=== PATIENT | male | born 1975 | race Caucasian/White ===

== ENCOUNTER 2017-03-10 15:20 | Inpatient (IN) | payer BC ==
[~2017-03-10] VITALS: Ht 195.6 cm; Wt 148.2 kg
[2017-03-18] MEDS ORDERED: ESCI20TA PO (13:40)
[2017-03-18] MEDS ORDERED: HYDR12.57 PO (13:40)
[2017-03-18] MEDS ORDERED: LOPE2CAP PO (13:40)
[2017-03-18] MEDS ORDERED: AZIT250T3 PO (13:40)
[2017-03-18] MEDS ORDERED: HYDR-3583 PO (13:40)
[2017-03-18] MEDS ORDERED: ATEN100T PO (13:40)
[2017-03-18] MEDS ORDERED: ZOLP10TA3 PO (13:40)
[2017-03-18] MEDS ORDERED: LORA1TAB12 PO (13:40)
[2017-03-18] MEDS ORDERED: DULO1CAP3 PO (13:40)
[2017-03-18] MEDS ORDERED: LYRI200C PO (13:40)
[2017-03-18] MEDS ORDERED: ALLO300T2 PO (13:40)
[2017-03-18] MEDS ORDERED: KETO2CRE TOPICAL (13:40)
[2017-03-19] VITALS (8 sets, daily range): BP systolic 133–177; BP diastolic 68–81; PULSE 67–98; RESP 14–20; TEMP 97–98.5; O2SAT 92–98
[2017-03-19] MEDS ORDERED: ceFAZolin 2 GM PREMIX 50 ML IV SCH (06:15)
[2017-03-19] MEDS ORDERED: LACTATED RINGER'S 1000 ML IV PRN (06:15)
[2017-03-19] MEDS ORDERED: CHLORHEXIDINE GLUCONATE 2 % 1 PACK (2 CLOTHS) TOPICAL PRN (06:15)
[2017-03-19] MEDS ORDERED: SODIUM CHLORID 0.9% 500 ML IV PRN (06:15)
[2017-03-19] MEDS ORDERED: VANCOMYCIN 1000 MG/NS 250 ML (for <70 kg) IV SCH ×2 (06:15)
[2017-03-19] MEDS ORDERED: POVIDONE IODINE 5% (ANTISEPSIS KIT) 4 APPLICATIONS EACH NARE PRN (06:15)
[2017-03-19] MEDS ORDERED: METOPROLOL TARTRATE 25 MG TAB PO PRN (06:15)
[2017-03-19] MEDS ORDERED: INSULIN HUMAN REGULAR 1,000 UNITS/10 ML VIAL SQ PRN (06:15)
[2017-03-19] MEDS ORDERED: CHLORHEXIDINE GLUCONATE 4% SOLN 120 ML BTL TOPICAL SCH (06:15)
[2017-03-19] MEDS ORDERED: BUPIVACAINE/EPINEPHRINE 0.5% PF 30 ML VIAL ONE (07:00)
[2017-03-19] MEDS ORDERED: GENTAMICIN SULFATE 80 MG/2 ML VIAL ONE (07:00)
[2017-03-19] MEDS ORDERED: MIDAZOLAM HCL 2 MG/2 ML VIAL ONE (07:10)
[2017-03-19] MEDS ORDERED: HYDROmorphone HCL PF 2 MG/ML VIAL ONE (07:10)
[2017-03-19] MEDS ORDERED: fentaNYL CITRATE 250 MCG/5 ML AMP ONE ×3 (07:10→12:15)
[2017-03-19] MEDS ORDERED: ACETAMINOPHEN 1000 MG/100 ML VIAL IV ONE (07:11)
[2017-03-19] MEDS ORDERED: PROPOFOL 200 MG/20 ML AMP IV ONE (07:26)
[2017-03-19] MEDS ORDERED: ePHEDrine/NS 25 MG/5 ML SYR IV ONE (07:26)
[2017-03-19] MEDS ORDERED: FLUMAZENIL 1 MG/10 ML VIAL IV ONE (07:29)
[2017-03-19] MEDS ORDERED: PHENYLEPH/NS 1000 MCG/10 ML SYR IV ONE (07:29)
[2017-03-19] MEDS ORDERED: ONDANSETRON HCL 4 MG/2 ML VIAL IV PUSH ONE (07:29)
[2017-03-19] MEDS ORDERED: LACTATED RINGER'S 1000 ML INJ 2,000 ML IV ONE (07:30)
[2017-03-19] MEDS ORDERED: ONDANSETRON HCL 4 MG/2 ML VIAL IV PRN (11:21)
[2017-03-19] MEDS ORDERED: NALOXONE HCL 0.4 MG/ML AMP IV PRN (11:21)
[2017-03-19] MEDS ORDERED: ALUMINUM/MAGNESIUM/SIMETH 30 ML CUP PO PRN (11:21)
--- NOTE | 2017-03-19 11:26 | HHI.PR ---
Immediate Post Op Note Procedure Date: Mar 19, 2017 Pre Op Diagnosis: C5-6,C6-7 HNP,ODC;DDD,OA Post Op Diagnosis: Same Surgeon: Pelon Oquendo MD Pressurised Container Filler(s): Jada Lara PA-C Procedure: C5-6,C6-7 AIF,ACC,ASI Complications: None Specimen(s) removed: None Estimated blood loss: 150 cc Anesthesia: General Drains: None Patient Condition: Good Implant/Devices: SEE IMPLANT LOG (if applicable) Date/Time of Procedure: SEE SURGICAL CARE RECORD Pelon Oquendo MD Mar 19, 2017 11:26
[2017-03-19] MEDS ORDERED: ACETAMINOPHEN/HYDROcodone 325 MG/10 MG TAB PO PRN (11:30)
[2017-03-19] MEDS ORDERED: MORPHINE SULFATE 8 MG/ML INJ IV PUSH PRN (11:30)
[2017-03-19] MEDS ORDERED: ZOLPIDEM TARTRATE 10 MG TAB PO PRN (11:30)
[2017-03-19] MEDS: SODIUM CHLORIDE 0.9% FLUSH 5 ML FLUSH IVF SCH ×2 (11:30→20:27)
[2017-03-19] MEDS ORDERED: SODIUM CHLORIDE 0.9% FLUSH 5 ML FLUSH IVF PRN (11:30)
[2017-03-19] MEDS ORDERED: LOPERAMIDE HCL 2 MG CAP PO PRN (11:30)
[2017-03-19] MEDS ORDERED: Post-op Orders (for Pharmacy) MISC XX ONE (11:34)
--- NOTE | 2017-03-19 11:43 | PD.OP ---
cc: Pelon Oquendo MD; Chris Oquendo MD Operative Report Date of Surgery: Mar 19, 2017 Preoperative Diagnosis: Osteophyte disc complex, herniated nucleus pulposus C5-C6, right. Herniated nucleus pulposus C6-C7 central, left. Bilateral cervical radiculopathy Postoperative Diagnosis: Same Procedure: Anterior cervical discectomy decompression and bilateral foraminotomies, C5 6. Anterior cervical discectomy decompression with bilateral foraminotomies C6 7. Left anterior iliac crest bone graft Anesthesia: Gen. Surgeon: Chris Oquendo Fine Grade Bulldozer Operator(s): LEILANI Nicole Operation and Findings: EBL: 50 cc INDICATIONS: This patient is a 42-year-old white male with significant neck and radiating bilateral arm pain. There is evidence of weakness of the arms and studies show evidence of an osteophyte disc complex to the right at C5-C6 and a herniated disc centrally into the left at C6 7. He presents for surgical treatment. NOTE: Maryse Nicole PA-C was present for the entire surgical procedure as my assistant branch manager. In my medical opinion her skill and care was necessary for proper management of this patient PROCEDURE: The patient was brought to the operating room and anesthetized in the supine position. This patient was positioned supine on the radiolucent table. All pressure points were protected in the anterior cervical spine and iliac crest was scrubbed with alcohol followed by Hibiclens followed by ChloraPrep. A timeout was done and antibiotics were given within 1 hour time window. Lateral radiographic images were used identifying the proper level. A right anterior incision was made in line with skin creases. The platysma was opened in line with the incision. Deep dissection continued in the interval between the carotid sheath and the esophagus. The longus-coli muscles were lifted on both sides and retractors were positioned allowing good exposure. Lateral radiographic images were used to identify the proper level. Armstrong style interosseous pins were placed at C5 and C6 allowing exposure to that level. The microscope was rolled into the field. A total discectomy was accomplished and posterior osteophytes were removed. The posterior longitudinal ligament and annulus was taken down. Bilateral foraminotomies were accomplished. The endplates were squared up anticipating later bone grafting. A blunt probe could be placed out each foramen without evidence of nerve root compromise. The C5 pin was placed down to C7. An anterior exposure was accomplished. We performed a total discectomy with excision of the posterior annulus and posterior longitudinal ligament. Bilateral foraminotomies were accomplished. Osteophytes were removed. The endplates were squared up anticipating later bone grafting. A blunt probe could be placed out each foramen without evidence of nerve root compromise. The left iliac crest was approached. A small stab incision was made allowing percutaneous access to the anterior iliac crest. Multiple cores of cancellous bone were harvested and taken to the back table to be used for later bone grafting. The wound was irrigated anesthetized and closed with 4-0 Vicryl followed by Dermabond. The case was turned over to Dr. Pelon Oquendo for fusion and instrumentation per his dictation. FINDINGS: There was evidence of a osteophyte disc complex with a soft disc herniation to the right at C5 6 and evidence of an extruded soft disc herniation to the left at C6-C7. The final decompression was very satisfactory. There was no complication that was appreciated. NOTE: This surgery was performed in 2 parts. The first part was the neurosurgical decompression performed under the variable power stereo microscope by the undersigned in addition to the bone graft. The second portion of the surgery will be performed by the orthopedic spine component by co -surgeon, Dr. Pelon Oquendo for the anterior fusion with interbody cage and anterior plate. The skill of 2 surgeons was necessary to perform distinct separate procedural services as dictated above and dictated in the following operative note by Dr. Pelon Oquendo. Chris Oquendo MD Mar 19, 2017 11:43
[2017-03-19] MEDS ORDERED: *morphine SULFATE 8 MG/ML PERIprocedure ONLY ONE (11:54)
[2017-03-19] MEDS ORDERED: *HYDROmorphone PF 1 MG VIAL PERIprocedural Use ONLY ONE ×4 (12:05→13:00)
[2017-03-19] MEDS: LACTATED RINGER'S 1000 ML INJ 1,000 ML IV SCH ×2 (12:20→23:51)
[2017-03-19] MEDS ORDERED: *RESP: ALBUTEROL 2.5 MG/3 ML NEB (PRN) PERIprocedural Use ONLY NEB ONE (12:24)
[2017-03-19] MEDS ORDERED: DO NOT ADM ANY ANTICOAGULANT DRUGS PRN (12:30)
[2017-03-19] MEDS ORDERED: ZOLPIDEM TARTRATE 5 MG TAB PO PRN (14:00)
--- NOTE | 2017-03-19 14:02 | PD.CONS ---
[facility] By [facility] Physician Kashmir Weir DO Diagnoses: History of Present Illness Mr. Martinez is a 42-year-old male. He was admitted for a C-spine fusion which is obtaining secondary to weakness and numbness of his right arm (sometimes left). He has a long history of chronic back pain in disease of the spine. Baseline medical conditions or sleep apnea, osteoarthritis, hypertension. He uses CPAP while he sleeps at night. I am seeing him status post surgery. He is alert and oriented 3 without any lethargy and he has no reported nausea or vomiting. No coronary artery disease. No lung disease. No diabetes. No other complaints. Review of Systems Constitutional: DENIES: Fatigue, Fever, Chills Eyes: DENIES: Blurred vision, Diplopia Ears, nose, mouth, throat: DENIES: Hearing loss, Vertigo Respiratory: DENIES: Cough, Wheezing, Shortness of breath Cardiovascular: DENIES: Chest pain, Palpitations, Syncope Gastrointestinal: DENIES: Abdominal pain, Black stools, Bloody stools Musculoskeletal: COMPLAINS OF: Joint pain, Neck pain Integumentary: DENIES: Abnormal pigmentation Hematologic/lymphatic: DENIES: Bruising Immunologic/allergic: DENIES: Eczema Neurologic: DENIES: Abnormal gait Psychiatric: DENIES: Anxiety, Confusion, Mood changes Past Family Social History Allergies: Coded Allergies: No Known Allergies (Unverified , 03/18/17) Past Medical History Osteoarthritis Chronic back pain Sleep apnea Hypertension Gen. anxiety disorder Past Surgical History Patient reports bone and spine surgeries, nonspecific Reported Medications Reported Meds & Active Scripts Active Reported Zolpidem (Zolpidem Tartrate) 10 Mg Tab 10 Mg PO HS PRN Lyrica (Pregabalin) 200 Mg Cap 200 Mg PO BID Lorazepam 1 Mg Tab 1 Mg PO BID Loperamide (Loperamide HCl) 2 Mg Cap 2 Mg PO DIRECTED PRN One capsule after each loose stool. Not to exceed 8 capsules per day. Hydrocodone-Acetaminophen 10-325 mg Tab 1 Tab PO TID Hydrochlorothiazide 12.5 Mg Cap 12.5 Mg PO DAILY Escitalopram (Escitalopram Oxalate) 20 Mg Tab 20 Mg PO DAILY Duloxetine DR (Duloxetine HCl) 60 Mg Capdr 60 Mg PO DAILY Atenolol 100 Mg Tab 100 Mg PO DAILY Allopurinol 300 Mg Tab 300 Mg PO DAILY Active Ordered Medications Administered Medications Medications (Trade) Dose Ordered Sig/Giorgio Route PRN Reason Start Time Stop Time Status Last Admin Dose Admin Lactated Ringer's (Lr 1000 ml Inj) 1,000 ml @ 80 mls/hr [id number] IV 03/19/17 11:21 03/19/17 12:20 Family History His mother and father healthy, reportedly Social History No smoking No alcohol abuse No drug abuse Physical Exam Vital Signs Vital Signs Date Time Temp Pulse Resp B/P Pulse Ox O2 Delivery O2 Flow Rate FiO2 03/19/17 13:15 98.2 81 12 155/80 95 Nasal Cannula 3 03/19/17 13:00 87 12 161/75 94 Nasal Cannula 3 03/19/17 12:45 87 14 158/74 96 Nasal Cannula 3 03/19/17 12:30 81 16 147/74 98 Aerosol Mask 03/19/17 12:15 88 12 148/73 92 Nasal Cannula 3 03/19/17 12:00 92 14 150/74 93 Nasal Cannula 3 03/19/17 11:45 89 15 149/78 98 Simple Mask 10 03/19/17 11:40 99.1 92 16 141/71 96 Simple Mask 15 03/19/17 06:25 98.2 67 18 146/81 98 Physical Exam GENERAL: NAD, A&Ox3 HEAD: Normocephalic. NECK: Supple, trachea midline. No lymphadenopathy. EYES: No scleral icterus. No injection or drainage. CARDIOVASCULAR: Regular rate and rhythm without murmurs, gallops, or rubs. RESPIRATORY: Breath sounds equal bilaterally. No accessory muscle use. GASTROINTESTINAL: Abdomen soft, non-tender, nondistended. MUSCULOSKELETAL: No cyanosis, or edema. Patient is in a cervical collar postop SKIN: Warm and dry. NEURO: No focal neurological deficitis. Assessment and Plan Problem List: (1) Osteoarthritis ICD Code: M19.90 Status: Acute (2) Hypertension ICD Code: I10 Status: Acute (3) Sleep apnea ICD Code: G47.30 Status: Acute (4) Chronic back pain ICD Code: M54.9 Status: Acute (5) S/P cervical spinal fusion ICD Code: Z98.1 Status: Acute Assessment and Plan Assessment and plan 42-year-old male status post cervical spine fusion Postop cervical spine fusion osteoarthritis Maintain c-collar Neurosurgery following When necessary pain treatments Decrease dose of zolpidem secondary to need for increase in narcotics Change lorazepam from when necessary to scheduled Sleep apnea CPAP machine at night Continue at-home settings Hypertension follow blood pressures Continue baseline treatments Slightly elevated presently that this would be expected secondary to discomfort , treat pain DVT prophylaxis SCDs Kin Gomez MD Mar 19, 2017 14:02
--- NOTE | 2017-03-19 16:00 | RADRPT ---
EXAM DATE/TIME: 03/19/2017 08:55 [facility] COMPARISON: No previous studies available for comparison. INDICATIONS : Herniated disk, hardware placement. MEDICAL HISTORY : None. SURGICAL HISTORY : None. ENCOUNTER: Initial ACUITY: 1 day PAIN SCORE: 1/10 LOCATION: Cervical spine. FINDINGS: Anterior cervical fusion hardware is noted from C5 through C7 and appears to be adequate in position. CONCLUSION: Status post anterior cervical fusion from C5 through C7. Dalton Hobbs MD on March 19, 2017 at 15:54 Board Certified Radiologist. This report was verified electronically.
[2017-03-19] MEDS: LORazepam 1 MG TAB PO PRN (18:22)
[2017-03-19] MEDS: DULoxetine HCl DR 60 MG CAP PO SCH (18:22)
[2017-03-19] MEDS: ACETAMINOPHEN/HYDROcodone 325 MG/10 MG TAB PO PRN (18:23)
[2017-03-19] MEDS: ESCITALOPRAM OXALATE 20 MG TAB PO SCH (18:23)
[2017-03-19] MEDS: PREGABALIN 100 MG CAP PO SCH (20:27)
[2017-03-19] MEDS ORDERED: PREGABALIN 100 MG CAP PO SCH (21:00)
[2017-03-19] MEDS ORDERED: LORazepam 1 MG TAB PO PRN (21:00)
[2017-03-19] MEDS ORDERED: LORazepam 1 MG TAB PO SCH (21:00)
[2017-03-20] MEDS: ACETAMINOPHEN/HYDROcodone 325 MG/10 MG TAB PO PRN ×3 (00:16→12:07)
[2017-03-20 04:00] VITALS: BP 149/80; PULSE 82; RESP 16; TEMP 97.4; O2SAT 94
[2017-03-20] MEDS: LORazepam 1 MG TAB PO PRN (06:06)
--- NOTE | 2017-03-20 07:09 | PD.ORT.PN ---
Subjective Subjective Remarks pt states her pre op arm pain and weakness has resolved no shortness of breath, no difficulty swallowing, minimal left anterior iliac crest pain Objective Vitals Vital Signs Date Time Temp Pulse Resp B/P Pulse Ox O2 Delivery O2 Flow Rate FiO2 03/20/17 04:00 97.4 82 16 149/80 94 03/19/17 23:00 98.5 97 17 133/71 92 03/19/17 20:18 95 03/19/17 19:00 98.3 94 18 177/80 95 03/19/17 17:15 98 21 03/19/17 16:00 97.9 92 14 162/76 93 03/19/17 14:26 97.0 98 14 151/68 98 03/19/17 13:15 98.2 81 12 155/80 95 Nasal Cannula 3 03/19/17 13:00 87 12 161/75 94 Nasal Cannula 3 03/19/17 12:45 87 14 158/74 96 Nasal Cannula 3 03/19/17 12:30 81 16 147/74 98 Aerosol Mask 03/19/17 12:15 88 12 148/73 92 Nasal Cannula 3 03/19/17 12:00 92 14 150/74 93 Nasal Cannula 3 03/19/17 11:45 89 15 149/78 98 Simple Mask 10 03/19/17 11:40 99.1 92 16 141/71 96 Simple Mask 15 I/O 03/19/17 03/19/17 03/19/17 03/20/17 03/20/17 03/20/17 07:00 15:00 23:00 07:00 15:00 23:00 Intake Total 2660 ml 480 ml 480 ml Output Total 150 ml Balance 2510 ml 480 ml 480 ml Intake Oral 60 ml 480 ml 480 ml IV Total 100 ml Other 2500 ml Output Estimated Blood Loss 150 ml # Voids 3 2 # Bowel Movements 0 0 Objective Remarks [place] collar in place dressing dry and intact motor is +5/5 to UE Assessment & Plan Assessment and Plan POD # 1 s/p C5-7 ACDF [place] collar x 4 weeks discharge home today orthopedically stable Pelon Oquendo MD Mar 20, 2017 07:09
[2017-03-20 08:00] VITALS: BP 160/91; PULSE 84; RESP 20; TEMP 97.4; O2SAT 93
[2017-03-20 08:02] LABS: HEMATOCRIT 38.4 % (39.0-51.0); MEAN CELL VOLUME 90.3 FL (80.0-100.0); MEAN CORPUSCULAR HEMOGLOBIN 31.1 PG (27.0-34.0); MEAN CORPUSCULAR HGB CONC 34.4 % (32.0-36.0); PLATELET COUNT 257 TH/MM3 (150-450); RED BLOOD COUNT 4.25 MIL/MM3 (4.50-5.90); RED CELL DISTRIBUTION WIDTH 12.8 % (11.6-17.2); REVIEW FLAG FINAL; WHITE BLOOD COUNT 11.1 TH/MM3 (4.0-11.0)
[2017-03-20 08:30] LABS: BICARBONATE 27.8 MEQ/L (21.0-32.0)
[2017-03-20] MEDS ORDERED: DULoxetine HCl DR 60 MG CAP PO SCH (09:00)
[2017-03-20] MEDS ORDERED: ESCITALOPRAM OXALATE 20 MG TAB PO SCH (09:00)
[2017-03-20] MEDS: DULoxetine HCl DR 60 MG CAP PO SCH (09:00)
[2017-03-20] MEDS ORDERED: MULTIVITAMINS/MINERALS THERAPEUTIC TAB PO SCH (09:00)
[2017-03-20] MEDS ORDERED: ATENOLOL 100 MG TAB PO SCH (09:00)
[2017-03-20] MEDS: SODIUM CHLORIDE 0.9% FLUSH 5 ML FLUSH IVF SCH (09:00)
[2017-03-20] MEDS ORDERED: HYDROCHLOROTHIAZIDE 12.5 MG CAP PO SCH (09:00)
[2017-03-20] MEDS ORDERED: ALLOPURINOL 300 MG TAB PO SCH (09:00)
[2017-03-20] MEDS: PREGABALIN 100 MG CAP PO SCH (10:25)
[2017-03-20] MEDS: LACTATED RINGER'S 1000 ML INJ 1,000 ML IV SCH (10:28)
[2017-03-20] MEDS: ESCITALOPRAM OXALATE 20 MG TAB PO SCH (10:28)
[2017-03-20 12:00] VITALS: BP 142/73; PULSE 74; RESP 20; TEMP 96.5; O2SAT 95
--- NOTE | 2017-03-20 15:07 | MP ---
cc: RENEE CANELA MD, ALBERT W. M.D. DATE OF SURGERY: 03/19/2017 PREOPERATIVE DIAGNOSIS 1. C5-6 herniated nucleus pulposus, osteophyte disc complex. 2. C6-7 herniated nucleus pulposus, osteophyte disc complex. 3. Cervical spine degenerative disc disease, osteoarthritis. 4. Bilateral cervical radiculitis, bilateral upper extremity weakness. 5. Obesity. POSTOPERATIVE DIAGNOSIS 1. C5-6 herniated nucleus pulposus, osteophyte disc complex. 2. C6-7 herniated nucleus pulposus, osteophyte disc complex. 3. Cervical spine degenerative disc disease, osteoarthritis. 4. Bilateral cervical radiculitis, bilateral upper extremity weakness. 5. Obesity. SURGEON Lior Oquendo MD ELECTRICAL ENGINEER Jada Lara PA-C PROCEDURE 1. C5-6, C6-7 anterior interbody fusion. 2. C5-6, C6-7 ACC SpineNet anterior cervical cage. 3. C5-C7 SpineNet Rhausler anterior spinal instrumentation. SPECIMEN None. ESTIMATED BLOOD LOSS 150 cc. COMPLICATIONS None. ANESTHESIA General. DRAINS None. CONDITION Stable. PLAN OF ACTIVITY As per orders. DETAILS OF PROCEDURE My communication assistant Jada Lara PA-C was present for the entire surgical case. She was medically necessary for the entire case because of the complexity of the case and to facilitate the performance of the procedure. The WINE MASTER was at the back table and did not have the skill set for this case to manipulate the instruments, e.g., the multiple different soft tissue retractors, trial implants and permanent implants. Dr. Chris Oquendo and myself were co-surgeons. Dr. Chris Oquendo performed the neurological decompression portion of the procedure, performed anterior cervical discectomy and anterior decompression using the operating microscope at C5-6 and C6-7 and also performed foraminotomies and left anterior iliac crest bone grafting. Because of the patient's very large size great care was made to protect all pressure points. The endplates at C6-7 were prepared for fusion. The hyaline cartilage endplate was removed using multiple different types of angled curets and burs. A 7, 10 x 12 ACC cage was placed in the interspace. Anterior iliac crest autogenous bone graft was used for interbody fusion under fluoroscopic guidance. The endplates at C5-6 were prepared for fusion. The hyaline cartilage endplates were removed using angled curets and burs. A 7, 10 x 12 ACC cage was placed in the interspace. Anterior iliac crest bone graft was placed under fluoroscopic guidance for interbody fusion. The patient had moderate size anterior osteophytes at C5-6 and C6-7. These were removed using multiple different types of rongeurs and a bur. A 46 mm length SpineNet Rhausler plate was used for anterior spinal instrumentation. The plate was contoured for appropriate cervical lordosis. Two screws were used in the vertebral body of C5, C6 and C7. Two pins were used to position the plate in appropriate position in both the AP and lateral plane which was confirmed under fluoroscopic guidance. Each screw was drilled and then appropriate length screws were inserted which were 14 mm length screws, 4.0 mm in diameter fixed angle screws. Each screw head was appropriately locked to the plate. Each of the pins were removed. Intraoperative fluoroscopy in AP and lateral plane confirmed satisfactory position of the bone graft at C5-6 and C6-7, satisfactory position of the ACC cage at C5-6 and C6-7, satisfactory position of the anterior spinal instrumentation from C5-C7. The wound was irrigated with copious amounts of sterile saline antibiotic solution. The wound itself was dry. The wound was closed in multiple layers using 3-0 Vicryl suture. The skin was approximated with running subcuticular 4-0 Vicryl. Sterile dressings were applied. Dermabond was placed over the skin incisions and then sterile dressings were applied. The patient was placed in a [place] cervical orthosis. The patient tolerated the procedure well and arrived in the recovery room in stable and satisfactory condition. MD ALMA Harper/JANINA /11:19 AM /2:52 PM
--- NOTE | 2017-03-20 15:35 | HHI.PR ---
Subjective Remarks Blood pressure is mildly elevated. No need to change blood pressure treatments. Plan to discharge to home today. Objective Vital Signs Date Time Temp Pulse Resp B/P Pulse Ox O2 Delivery O2 Flow Rate FiO2 03/20/17 12:00 96.5 74 20 142/73 95 03/20/17 08:00 97.4 84 20 160/91 93 03/20/17 04:00 97.4 82 16 149/80 94 03/19/17 23:00 98.5 97 17 133/71 92 03/19/17 20:18 95 03/19/17 19:00 98.3 94 18 177/80 95 03/19/17 17:15 98 21 03/19/17 16:00 97.9 92 14 162/76 93 I/O 03/19/17 03/19/17 03/19/17 03/20/17 03/20/17 03/20/17 07:00 15:00 23:00 07:00 15:00 23:00 Intake Total 2660 ml 480 ml 480 ml 2000 ml Output Total 150 ml Balance 2510 ml 480 ml 480 ml 2000 ml Intake Oral 60 ml 480 ml 480 ml 2000 ml IV Total 100 ml Other 2500 ml Output Estimated Blood Loss 150 ml # Voids 3 2 3 # Bowel Movements 0 0 0 Result Diagram: 03/20/17 0725 03/20/17 0725 Imaging Last Impressions Cervical Spine X-Ray 03/19/17 0000 Signed Impressions: Service Date/Time: March 08:55 - CONCLUSION: Status post anterior cervical fusion from C5 through C7. Dalton Hobbs MD Objective Remarks GENERAL: NAD, A&Ox3 HEAD: Normocephalic. NECK: Supple, trachea midline. No lymphadenopathy. EYES: No scleral icterus. No injection or drainage. CARDIOVASCULAR: Regular rate and rhythm without murmurs, gallops, or rubs. RESPIRATORY: Breath sounds equal bilaterally. No accessory muscle use. GASTROINTESTINAL: Abdomen soft, non-tender, nondistended. MUSCULOSKELETAL: No cyanosis, or edema. Patient is in a c-collar. SKIN: Warm and dry. NEURO: No focal neurological deficitis. A/P Problem List: (1) Osteoarthritis ICD Code: M19.90 (2) Hypertension ICD Code: I10 (3) Sleep apnea ICD Code: G47.30 (4) Chronic back pain ICD Code: M54.9 (5) S/P cervical spinal fusion ICD Code: Z98.1 Assessment and Plan Assessment and plan 42-year-old male status post cervical spine fusion. Medically stable for discharge to home today. Postop cervical spine fusion osteoarthritis Maintain c-collar Neurosurgery following When necessary pain treatments Decrease dose of zolpidem secondary to need for increase in narcotics Change lorazepam from when necessary to scheduled Sleep apnea CPAP machine at night Continue at-home settings Hypertension follow blood pressures Continue baseline treatments Slightly elevated presently that this would be expected secondary to discomfort , treat pain Discharge planning Discharge home today. Medically clear for discharge. Kin Gomez MD Mar 20, 2017 15:35
== END 2017-03-20 13:37 | disposition home or self-care (01) | DRG 473 ==
LOC: HSDI 03-19 05:43 → N06B 03-19 13:42
PROVIDERS: ADMIT Orthopaedic Surgery Orthopaedic Surgery of the Spine; ATTEND Orthopaedic Surgery Orthopaedic Surgery of the Spine
PROC: 0RG2070 Fusion of 2 or more Cervical Vertebral Joints with Autologous Tissue Substitute, Anterior Approach, Anterior Column, Open Approach (ICD-10-PCS; 2017-03-19)
PROC: 0RB30ZZ Excision of Cervical Vertebral Disc, Open Approach (ICD-10-PCS; 2017-03-19)
PROC: 0QB30ZZ Excision of Left Pelvic Bone, Open Approach (ICD-10-PCS; 2017-03-19)
PROC: 0PH304Z Insertion of Internal Fixation Device into Cervical Vertebra, Open Approach (ICD-10-PCS; 2017-03-19)
PROC: 0RG20A0 Fusion of 2 or more Cervical Vertebral Joints with Interbody Fusion Device, Anterior Approach, Anterior Column, Open Approach (ICD-10-PCS; principal; 2017-03-19 07:13)
DX: M50.122 Cervical disc disorder at C5-C6 level with radiculopathy (principal); I10 Essential (primary) hypertension; E66.9 Obesity, unspecified; M50.123 Cervical disc disorder at C6-C7 level with radiculopathy; Z68.38 Body mass index [BMI] 38.0-38.9, adult; G47.30 Sleep apnea, unspecified; G89.29 Other chronic pain; M19.90 Unspecified osteoarthritis, unspecified site
CPT/HCPCS: 72040; 76000; 80048; 85027; 94150; 94664; C1713; J0131; J0690; J1170; J1580; J2250; J2270; J2370; J2405; J3010; J3370; J7050; J7120; J7613